=== PATIENT | female | born 1950 | race Caucasian/White ===

== ENCOUNTER 2017-02-04 14:21 | Emergency (ER) | payer MEDICARE ==
[2017-02-04] MEDS ORDERED: Narcan 0.4 MG/ML IV ONE (14:39)
[2017-02-04] MEDS ORDERED: Narcan 0.4 MG/ML ONE (14:44)
[2017-02-04 14:48] LABS: COMPLETE URINE MICROSCOPIC? YES; Collection Type CATH
[2017-02-04 14:58] LABS: Bacteria MANY /HPF (NEGATIVE); Epithelial Cells FEW /HPF (FEW)
--- NOTE | 2017-02-04 14:58 | XRAY ---
Indication: Hypoxia. Acute mental status change. Comparison: April 30, 2016. Portable chest again hyperinflated and clear. Heart is upper limits normal for AP portable technique. Bony thorax intact. Again noted left mastectomy. Impression: Nonacute hyperinflated chest.
--- NOTE | 2017-02-04 15:03 | ERPHSYRPT ---
- History of Present Illness Time Seen by Provider: 02/04/17 14:45 Source: patient, family Exam Limitations: clinical condition Physician History: Pt. with long H/O breast and lung CA who became confused today and sleeping more since last pm. She has no access to pain meds per her daughter here. Her has been hospitalized for pacemaker today. No recent meds changed. Pt. is DNR. Time of Onset/Last Time Seen Normal: last pm. last at her dementia baseline. Timing/Duration: today, hour(s) Severity: severe Character of Deficits: new weakness, impaired speech Deficits: bed-ridden, weak Baseline/Normal Cognition: alert oriented x 3 Current Cognition: poor alertness Baseline Gait: unable to walk Associated Symptoms: confusion, weakness, slurred speech Allergies/Adverse Reactions: Sulfa (Sulfonamide Antibiotics) [Sulfa(Sulfonamide Antibiotics)] Allergy (Mild, Verified 02/04/17 15:13) Rash steroids Adverse Reaction (Unknown, Uncoded 02/04/17 15:13) Home Medications: Acitretin 25 mg PO BID 02/04/17 [History] Albuterol Sulfate [Proair Hfa] 8.5 gm IH UD 02/04/17 [History] Alprazolam 1 mg [Xanax 1 mg] 1 mg PO TID 02/04/17 [History] Calcipotriene/Betamethasone [Calcipotriene-Betameth Dp Oint] 60 gm TP BID [History] Ergocalciferol (Vitamin D2) [Vitamin D] 50,000 unit PO UD 02/04/17 [History] Famotidine 40 mg PO BID 02/04/17 [History] Fenofibrate 160 mg PO DAILY 02/04/17 [History] Fluticasone/Salmeterol [Advair 100-50 Diskus] 1 each IH BID 02/04/17 [History] Folic Acid 1 mg PO DAILY 02/04/17 [History] Gabapentin 800 mg PO TID 02/04/17 [History] Metoprolol Succinate 25 mg PO BID 02/04/17 [History] Oxycodone HCl Cr 20 mg [Oxycontin 20 MG] 20 mg PO BID 02/04/17 [History] Oxycodone HCl/Acetaminophen [Oxycodon-Acetaminophen 7.5-325] 1 each PO BID 02/04 [History] Pramipexole Di-HCl 0.5 mg [Mirapex 0.5 MG Tablet] 0.25 mg PO DAILY [History] Simvastatin 40 mg [Zocor 40 mg] 40 mg PO DAILY 02/04/17 [History] Tamoxifen Citrate 20 mg PO DAILY 02/04/17 [History] Tiotropium [place] Inhaler [Spiriva 18 Mcg/Cap Inhaler] 1 ea IH DAILY [History] Tizanidine HCl 4 mg [Zanaflex 4 MG] 4 mg PO BID 02/04/17 [History] Hx Tetanus, Diphtheria Vaccination/Date Given: No Hx Influenza Vaccination/Date Given: Yes (fall 2012) Hx Pneumococcal Vaccination/Date Given: Yes (2011) - Review of Systems Constitutional: Weakness Respiratory: No Cough Cardiac: No Chest Pain Abdominal/Gastrointestinal: Diarrhea Skin: Other (mottling and cool) Psychological: Memory Loss All Other Systems: Unable due to condition, Unable due to dementia - Past Medical History Pertinent Past Medical History: Yes Neurological History: Peripheral Neuropathy ENT History: Cataracts Cardiac History: Arrhythmia, High Cholesterol Respiratory History: Emphysema, Lung Cancer Endocrine Medical History: No Pertinent History Musculoskeletal History: Arthritis, Fibromyalgia GI Medical History: GERD History: No Pertinent History Psycho-Social History: Anxiety Female Reproductive Disorders: Breast Cancer Other Medical History: psorisis, elevated triglycerides - Past Surgical History Past Surgical History: Yes Neuro Surgical History: No Pertinent History Cardiac: No Pertinent History Respiratory: Lobectomy Gastrointestinal: Appendectomy, Cholecystectomy Genitourinary: No Pertinent History Musculoskeletal: No Pertinent History Female Surgical History: Hysterectomy, Mastectomy Other Surgical History: CVL PORT placement et removal, bilateral cataract surgeries (Phaco w/ IOL bilateral) - Social History Smoking Status: Current every day smoker How long have you smoked: 48 yrs Exposure to second hand smoke: No Drug Use: none Patient Lives Alone: No - Female History Hx Now: No - Nursing Vital Signs Nursing Vital Signs: Initial Vital Signs Temperature 98.8 F Temperature Source Rectal Pulse Rate 84 Respiratory Rate 18 Blood Pressure [] 132/61 Pain Intensity 0 - [place] Coma Scale Best Eye Response (Phi): (2) open to pain Best Verbal Response ([place]): (4) confused conversation Best Motor Response ([place]): (5) localizes to pain Phi Total: 11 - Physical Exam General Appearance: moderate distress Eye Exam: bilateral eye: PERRL, EOMI Ears, Nose, Throat Exam: normal ENT inspection, dry mucous membranes Neck Exam: normal inspection, supple Respiratory: normal breath sounds, lungs clear Cardiovascular: regular rate/rhythm, normal heart sounds, normal peripheral pulses Gastrointestinal: soft, normal bowel sounds Back Exam: rash Extremity Exam: pelvis stable, other (psoriasis) Mental Status: depressed affect, disoriented to person, disoriented to place, 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 Not transported with O2 at her usual 3lpm. Now 96% on 3 lpm NC O2.) Oxygen Delivery: Nasal Cannula - Course Nursing assessment & vital signs reviewed: Yes EKG Interpreted by Me: RATE (83), Sinus Rhythm, Other (RVH. No acute ischemia.) - Radiology Exams Chest X-ray Interpretation: Teleradiologist Report, Other (Non-acute hyperinflated Chest.) - CT Exams Head CT Interpretation: Tele-radiologist Report, Other (No new/acute intracranial abn.) Ordered Tests: Active Orders 24 hr Category Date Time Status EKG-ER Only STAT Care 02/04/17 14:39 Active IV Insertion STAT Care 02/04/17 14:39 Active NPO (ED) STAT Care 02/04/17 14:39 Active Oxygen-ED Only NASAL CANNULA 3 lpm Care 02/04/17 15:12 Active Oxygen-ED Only NON-REBREATHER 100% Care 02/04/17 14:39 Inactive Pulse Oximetry (ED) STAT Care 02/04/17 14:39 Active CHEST 1 VIEW (PORTABLE) Stat Exams 02/04/17 14:40 Completed HEAD WITHOUT CONTRAST [CT] Stat Exams 02/04/17 14:49 Completed ACETAMINOPHEN Stat Lab 02/04/17 15:00 Completed ARTERIAL BLOOD GASES Urgent Lab 02/04/17 15:25 Completed CBC W DIFF Stat Lab 02/04/17 15:00 Completed CMP Stat Lab 02/04/17 15:00 Completed Ethyl Alcohol,Urine Stat Lab 02/04/17 14:40 Completed Lactic Acid Stat Lab 02/04/17 15:25 Completed Manual Differential NC Stat Lab 02/04/17 15:00 Completed PROTIME WITH INR Stat Lab 02/04/17 15:00 Completed SALICYLATE Stat Lab 02/04/17 15:00 Completed UA W/ MICROSCOPIC Stat Lab 02/04/17 14:40 Completed Urine Triage Profile Stat Lab 02/04/17 14:40 Completed Medication Summary Generic Name Dose Route Start Last Admin Trade Name Freq PRN Reason Stop Dose Admin Levofloxacin/Dextrose 150 mls @ 100 mls/hr 02/04/17 16:15 Levofloxacin 750mg/150ml D5w IV 02/04/17 17:44 STAT ONE Piperacillin Sod/Tazobactam 100 mls @ 100 mls/hr 02/04/17 16:15 Sod 4.5 gm/ Dextrose IV 02/04/17 17:14 STAT ONE Sodium Chloride 1,000 mls @ 999 mls/hr 02/04/17 16:15 Sodium Chloride 0.9% 1000 Ml IV 02/04/17 17:15 .Q1H1M STA Vancomycin HCl 250 mls @ 167 mls/hr 02/04/17 16:15 Vancomycin 1gm/ Ns 250ml IV 02/04/17 17:44 STAT ONE Discontinued Medications Generic Name Dose Route Start Last Admin Trade Name Freq PRN Reason Stop Dose Admin Naloxone HCl 0.4 mg 02/04/17 14:39 02/04/17 14:45 Narcan 0.4 Mg/Ml IV 02/04/17 14:40 0.4 mg STAT ONE Administration Naloxone HCl Confirm 02/04/17 14:44 Narcan 0.4 Mg/Ml Administered 02/04/17 14:45 Dose 0.4 mg .ROUTE .K-MED ONE Lab/Rad Data: Laboratory Result Diagrams 02/04/17 15:00 02/04/17 15:00 Laboratory Results 02/04/17 02/04/17 02/04/17 Range/Units 15:25 15:25 15:00 WBC (4.0-10.5) K/mm3 RBC (4.1-5.4) M/mm3 Hgb (12.0-16.0) gm/dl Hct (35-47) % MCV (78-100) fl MCH (26-32) pg MCHC (32-36) g/dl RDW (11.5-14.0) % Plt Count (150-450) K/mm3 MPV (6-9.5) fl INR 2.33 (0.8-3.0) Puncture Site LEFT RADIAL pCO2 39 (35-45) mmHg pO2 86 (75-100) mmHg Base Excess -3.2 L (-2.0-2.0) O2 Saturation 93.3 L (94-100) g/dF ABG pH 7.36 (7.35-7.45) ABG HCO3 22.0 (22-28) ABG O2 Sat (Measured) 96.6 (95-100) % Dada Test YES A-a Gradient 93 a/A Ratio 0.48 Hemoglobin 11.7 Carboxyhemoglobin 2.6 (0.0-6.9) % THgb Methemoglobin 0.7 L (1.4-1.5) % Temperature 37.0 C POC O2 Flow Rate 32 % Sodium (136-145) mEq/L Potassium 5.2 H (3.5-5.1) mEq/L Chloride (98-107) mEq/L Carbon Dioxide (21-32) mEq/L Anion Gap (5-15) MEQ/L BUN (9-20) mg/dL Creatinine (0.55-1.30) mg/dl Estimated GFR ML/MIN Glucose (70-110) MG/DL Lactic Acid 2.3 H (0.4-2.0) Calcium (8.5-10.1) mg/dL Total Bilirubin (0.2-1.0) mg/dL AST (15-37) U/L ALT (12-78) U/L Alkaline Phosphatase (46-116) U/L Serum Total Protein (6.4-8.2) gm/dL Albumin (3.4-5.0) g/dL Ur Collection Type Urine Color (YELLOW) Urine Appearance (CLEAR) Urine pH (5-6) Ur Specific [place] (1.005-1.025) Urine Protein (Negative) Urine Glucose (UA) (NEGATIVE) mg/dL Urine Ketones (NEGATIVE) Urine Nitrite (NEGATIVE) Urine Bilirubin (NEGATIVE) Urine Urobilinogen (0-1) mg/dL Urine WBC (Auto) (NEGATIVE) Urine RBC (Auto) (0-5) Jose/ul Urine Microscopic RBC (0-2) /HPF Urine Microscopic WBC (0-5) /HPF Ur Epithelial Cells (FEW) /HPF Urine Bacteria (NEGATIVE) /HPF Salicylates (2.8-20.0) mg/dl Urine Opiates Level (NEGATIVE) Ur Methadone (NEGATIVE) Acetaminophen (10-30) ug/ml Urine Barbiturates (NEGATIVE) Ur Phencyclidine (PCP) (NEGATIVE) Urine Amphetamine (NEGATIVE) U Benzodiazepine Level (NEGATIVE) Urine Cocaine (NEGATIVE) Urine Marijuana (THC) (NEGATIVE) Urine Ethyl Alcohol (0.00-20) mg/dl Specimen Received 02/04/17 02/04/17 02/04/17 Range/Units 15:00 15:00 14:40 WBC 23.8 H (4.0-10.5) K/mm3 RBC 3.66 L (4.1-5.4) M/mm3 Hgb 11.7 L (12.0-16.0) gm/dl Hct 39.1 (35-47) % MCV 106.8 H (78-100) fl MCH 31.9 (26-32) pg MCHC 29.9 L (32-36) g/dl RDW 16.8 H (11.5-14.0) % Plt Count 159 (150-450) K/mm3 MPV 11.5 H (6-9.5) fl INR (0.8-3.0) Puncture Site pCO2 (35-45) mmHg pO2 (75-100) mmHg Base Excess (-2.0-2.0) O2 Saturation (94-100) g/dF ABG pH (7.35-7.45) ABG HCO3 (22-28) ABG O2 Sat (Measured) (95-100) % Dada Test A-a Gradient a/A Ratio Hemoglobin Carboxyhemoglobin (0.0-6.9) % THgb Methemoglobin (1.4-1.5) % Temperature C POC O2 Flow Rate % Sodium 149 H (136-145) mEq/L Potassium 5.3 H (3.5-5.1) mEq/L Chloride 109 H (98-107) mEq/L Carbon Dioxide 26.1 (21-32) mEq/L Anion Gap 18.7 H (5-15) MEQ/L BUN 56 H (9-20) mg/dL Creatinine 3.80 H (0.55-1.30) mg/dl Estimated GFR 13 ML/MIN Glucose 101 (70-110) MG/DL Lactic Acid (0.4-2.0) Calcium 7.6 L (8.5-10.1) mg/dL Total Bilirubin 1.8 H (0.2-1.0) mg/dL AST 7722 H (15-37) U/L ALT 1973 H (12-78) U/L Alkaline Phosphatase 72 (46-116) U/L Serum Total Protein 6.6 (6.4-8.2) gm/dL Albumin 3.2 L (3.4-5.0) g/dL Ur Collection Type Urine Color (YELLOW) Urine Appearance (CLEAR) Urine pH (5-6) Ur Specific [place] (1.005-1.025) Urine Protein (Negative) Urine Glucose (UA) (NEGATIVE) mg/dL Urine Ketones (NEGATIVE) Urine Nitrite (NEGATIVE) Urine Bilirubin (NEGATIVE) Urine Urobilinogen (0-1) mg/dL Urine WBC (Auto) (NEGATIVE) Urine RBC (Auto) (0-5) Jose/ul Urine Microscopic RBC (0-2) /HPF Urine Microscopic WBC (0-5) /HPF Ur Epithelial Cells (FEW) /HPF Urine Bacteria (NEGATIVE) /HPF Salicylates 5.4 (2.8-20.0) mg/dl Urine Opiates Level NEG. (NEGATIVE) Ur Methadone NEG. (NEGATIVE) Acetaminophen < 2.0 L (10-30) ug/ml Urine Barbiturates NEG. (NEGATIVE) Ur Phencyclidine (PCP) NEG. (NEGATIVE) Urine Amphetamine NEG. (NEGATIVE) U Benzodiazepine Level POS. (NEGATIVE) Urine Cocaine NEG. (NEGATIVE) Urine Marijuana (THC) NEG. (NEGATIVE) Urine Ethyl Alcohol (0.00-20) mg/dl Specimen Received 02/04/17 02/04/17 Range/Units 14:40 14:40 WBC (4.0-10.5) K/mm3 RBC (4.1-5.4) M/mm3 Hgb (12.0-16.0) gm/dl Hct (35-47) % MCV (78-100) fl MCH (26-32) pg MCHC (32-36) g/dl RDW (11.5-14.0) % Plt Count (150-450) K/mm3 MPV (6-9.5) fl INR (0.8-3.0) Puncture Site pCO2 (35-45) mmHg pO2 (75-100) mmHg Base Excess (-2.0-2.0) O2 Saturation (94-100) g/dF ABG pH (7.35-7.45) ABG HCO3 (22-28) ABG O2 Sat (Measured) (95-100) % Dada Test A-a Gradient a/A Ratio Hemoglobin Carboxyhemoglobin (0.0-6.9) % THgb Methemoglobin (1.4-1.5) % Temperature C POC O2 Flow Rate % Sodium (136-145) mEq/L Potassium (3.5-5.1) mEq/L Chloride (98-107) mEq/L Carbon Dioxide (21-32) mEq/L Anion Gap (5-15) MEQ/L BUN (9-20) mg/dL Creatinine (0.55-1.30) mg/dl Estimated GFR ML/MIN Glucose (70-110) MG/DL Lactic Acid (0.4-2.0) Calcium (8.5-10.1) mg/dL Total Bilirubin (0.2-1.0) mg/dL AST (15-37) U/L ALT (12-78) U/L Alkaline Phosphatase (46-116) U/L Serum Total Protein (6.4-8.2) gm/dL Albumin (3.4-5.0) g/dL Ur Collection Type CATH Urine Color YELLOW (YELLOW) Urine Appearance CLOUDY (CLEAR) Urine pH 5.0 5.0 (5-6) Ur Specific [place] 1.025 (1.005-1.025) Urine Protein 100 (Negative) Urine Glucose (UA) NEGATIVE (NEGATIVE) mg/dL Urine Ketones NEGATIVE (NEGATIVE) Urine Nitrite NEGATIVE (NEGATIVE) Urine Bilirubin SMALL (NEGATIVE) Urine Urobilinogen 1 (0-1) mg/dL Urine WBC (Auto) SMALL (NEGATIVE) Urine RBC (Auto) MODERATE (0-5) Jose/ul Urine Microscopic RBC 0-2 (0-2) /HPF Urine Microscopic WBC 10-15 (0-5) /HPF Ur Epithelial Cells FEW (FEW) /HPF Urine Bacteria MANY (NEGATIVE) /HPF Salicylates (2.8-20.0) mg/dl Urine Opiates Level (NEGATIVE) Ur Methadone (NEGATIVE) Acetaminophen (10-30) ug/ml Urine Barbiturates (NEGATIVE) Ur Phencyclidine (PCP) (NEGATIVE) Urine Amphetamine (NEGATIVE) U Benzodiazepine Level (NEGATIVE) Urine Cocaine (NEGATIVE) Urine Marijuana (THC) (NEGATIVE) Urine Ethyl Alcohol 3 (0.00-20) mg/dl Specimen Received 02/04/17 1440 - Progress Progress Note: 02/04/17 16:06 Suspected poor outcome in this Cancer Pt. with sepsis. Counseled pt/family regarding: lab results, diagnosis, need for follow-up (They wish transfer to [facility]), rad results - Departure Time of Disposition: 16:00 Departure Disposition: [facility] Nader Troy[facility] Clinical Impression: Sepsis Qualifiers: Sepsis type: sepsis due to unspecified organism Qualified Code(s): A41.9 - Sepsis, unspecified organism Breast cancer Qualifiers: Breast location: unspecified site of breast Patient sex: female Laterality: left Qualified Code(s): C50.912 - Malignant neoplasm of unspecified site of left female breast Lung cancer Qualifiers: Laterality: unspecified laterality Lung location: unspecified part of lung Qualified Code(s): C34.90 - Malignant neoplasm of unspecified part of unspecified bronchus or lung Condition: Critical Critical Care Time: Yes Critical Care Time(excluding separately billable procedures): 75-104 minutes Referrals: LUIS ENRIQUE MAC [Primary Care Provider] -
--- NOTE | 2017-02-04 15:23 | XRAY ---
Indication: Acute mental status change. History of breast and lung carcinoma. Multiple contiguous axial images obtained through the head without contrast. Comparison: May 26, 2013. Again age-appropriate global atrophy and minimal degenerative micro-ischemia bilaterally. No acute intracranial hemorrhage, abnormal extra-axial fluid collection, or mass effect. Fourth ventricle is midline without hydrocephalus. Shaikh-white matter differentiation maintained. Bony calvarium intact. Visualized paranasal sinuses and mastoid air cells are pneumatized and clear. Impression: Again normal aging brain including atrophy and degenerative micro-ischemia. No new/acute intracranial abnormalities. CTDI 60.93
[2017-02-04 15:25] LABS: INR 2.33 (0.8-3.0); PROTIME 25.5 SECONDS (9.95-12.35)
[2017-02-04 15:28] LABS: A-aADO2 93; ALLEN TEST OK? YES; ARTERIAL BLD GAS O2 SATURATION 96.6 % (95-100); ARTERIAL BLOOD GAS BASE EXCESS -3.2 (-2.0-2.0); ARTERIAL BLOOD GAS FIO2 32 %; ARTERIAL BLOOD GAS PO2 86 mmHg (75-100); ARTERIAL BLOOD GAS pH 7.36 (7.35-7.45)
[2017-02-04 15:35] VITALS: O2SAT 96
[2017-02-04 15:40] LABS: Mean Cell Volume 106.8 fl (78-100); Mean Platelet Volume 11.5 fl (6-9.5); Platelet Count 159 K/mm3 (150-450); Red Blood Count 3.66 M/mm3 (4.1-5.4); Red Cell Distribution Width 16.8 % (11.5-14.0); White Blood Count 23.8 K/mm3 (4.0-10.5)
[2017-02-04 15:47] LABS: ALBUMIN 3.2 g/dL (3.4-5.0); ALKALINE PHOSPHATASE 72 U/L (46-116); ANION GAP 18.7 MEQ/L (5-15); BILIRUBIN,TOTAL 1.8 mg/dL (0.2-1.0); BLOOD UREA NITROGEN 56 mg/dL (9-20); CHLORIDE 109 mEq/L (98-107); Carbon Dioxide 26.1 mEq/L (21-32); Glucose 101 MG/DL (70-110); Mean Corpuscular Hemoglobin 31.9 pg (26-32); Potassium 5.3 mEq/L (3.5-5.1); SODIUM 149 mEq/L (136-145); Total Protein 6.6 gm/dL (6.4-8.2)
[2017-02-04 16:14] LABS: ACETAMINOPHEN < 2.0 ug/ml (10-30); SGOT/AST 7722 U/L (15-37); SGPT/ALT 1973 U/L (12-78)
[2017-02-04] MEDS ORDERED: LEVOFLOXACIN 750MG/150ML D5W 150 ML IV ONE ×2 (16:15→17:26)
[2017-02-04] MEDS ORDERED: Vancomycin 1GM/ Ns 250ML*** 250 ML IV ONE (16:15)
[2017-02-04] MEDS ORDERED: Sodium Chloride 0.9% 1000 ML 1,000 ML IV STA (16:15)
[2017-02-04] MEDS ORDERED: Zosyn INJ 4.5 GM in D5w 100ML Mini Bag 100 ML 100 ML IV ONE (16:15)
[2017-02-04] MEDS ORDERED: Zosyn INJ IV ONE (16:17)
[2017-02-04] MEDS ORDERED: Sodium Chloride 0.9% 1000 ML 1,000 ML ONE (16:17)
[2017-02-04] MEDS ORDERED: D5w 100ML Mini Bag 100 ML 100 ML IV ONE (16:18)
[2017-02-04 16:36] LABS: BAND 6 % (0.0-2.0); Nucleated Red Blood Cell 1 %; Total Cells Counted 100
[2017-02-04 16:37] LABS: Platelet Estimate NORMAL (NORMAL)
[2017-02-04 16:39] LABS: ANISOCYTOSIS 1+; Polychromasia 2+
[2017-02-04 16:40] LABS: Hypochromia 1+
[2017-02-04 16:41] LABS: Macrocytosis 1+
[2017-02-04] MEDS ORDERED: Levofloxacin 500MG/100ML D5W 100 ML IV ONE (17:23)
[2017-02-04 17:40] VITALS: BP 130/78; PULSE 80
== END 2017-02-04 17:40 | disposition short-term general hospital (02) ==
LOC: ED 14:21
DX: A41.9 Sepsis, unspecified organism (principal); C50.912 Malignant neoplasm of unspecified site of left female breast; C34.90 Malignant neoplasm of unspecified part of unspecified bronchus or lung; E78.00 Pure hypercholesterolemia, unspecified; Z79.899 Other long term (current) drug therapy; R41.0 Disorientation, unspecified
CPT/HCPCS: 96374; 96365; 96366; 99285; 36000; 96360; 93005; 81000; 85610; 36415; 80307 ×2; 80320; 83986; 85025; 80053; 71010; 70450; 82803; 82375; 36600; 83605; G0481; J1956; J2310; J2543

== ENCOUNTER 2017-06-19 06:33 | Day surgery (SDC) | payer MEDICARE ==
--- NOTE | 2017-05-12 11:25 | HP ---
DATE OF SURGERY: 05/15/2017 ADMISSION DIAGNOSIS: Esophagitis. The patient had a manometry scheduled but did not have this done. She was referred by Dr. Martinez with a narrowing requiring evaluation. ANTICIPATED PROCEDURE: EGD possible dilatation. HISTORY OF PRESENT ILLNESS: The patient had previous EGD. She now has what seems to be progressive disease. She presents for re-evaluation. EGD and possible dilatation. PAST MEDICAL HISTORY: ALLERGIES: SULFA, STEROIDS. MEDICATIONS: Multiple. PAST SURGICAL HISTORY: None recent. SOCIAL HISTORY: Half pack per day. ETOH negative. FAMILY HISTORY: Negative. REVIEW OF SYSTEMS: Emphysema. PHYSICAL EXAMINATION: VITAL SIGNS: Normal. CHEST: Clear. COR: Regular. NECK: No adenopathy. IMPRESSION: Esophagitis, difficulty swallowing, weight loss. PLAN: EGD, possible dilatation.
--- NOTE | 2017-06-14 16:41 | HP ---
ADMISSION DIAGNOSIS: Epigastric pain, weight loss, difficulty swallowing. PLAN: Esophagogastroduodenoscopy, possible dilatation. PAST MEDICAL HISTORY: ALLERGIES: Sulfa. MEDICATIONS: Multiple. SURGERIES: Multiple. REVIEW OF SYSTEMS: Emphysema. SOCIAL HISTORY: Negative. FAMILY HISTORY: Negative. PHYSICAL EXAMINATION: VITAL SIGNS: Normal. CHEST: Clear. COR: Regular. ABDOMEN: No palpate organomegaly or mass. Esophageal symptoms. PLAN: EGD.
[2017-06-19] MEDS ORDERED: DEMEROL 50 MG IJ ONE ×2 (06:34)
[2017-06-19] MEDS ORDERED: Zofran 4 MG/2 ML VIAL IV ONE (06:34)
[2017-06-19] MEDS ORDERED: VERSED 5 MG/5 ML IV ONE (06:34)
[2017-06-19] MEDS: Sodium Chloride 0.9% 1000 ML 1,000 ML IV SCH ×2 (06:51→07:16)
[2017-06-19 07:07] VITALS: O2SAT 97
[2017-06-19 09:59] VITALS: BP 133/78; PULSE 78
--- NOTE | 2017-06-20 07:54 | OP ---
SURGERY DATE/TIME: 06/19/2017 0850 PREOPERATIVE DIAGNOSIS: Epigastric pain, nausea, dysphagia. POSTOPERATIVE DIAGNOSIS: Esophageal stricture. PROCEDURE: EGD with balloon dilatation. SURGEON: Pablo Kerr M.D. ANESTHESIA: IVS. COMPLICATIONS: None. CONDITION: Stable. INDICATION: The patient has epigastric pain, nausea and dysphagia. DESCRIPTION OF PROCEDURE: Taken to the endoscopy suite. Left lateral decubitus position. IV sedation titrated. Scope introduced. There was a stricture size 24. It was insufflated to size 40. The scope was reintroduced. There was some usual abrasion and slight oozing. No suggestion of any major issue. Fundus, body, antrum, pylorus, duodenal bulb satisfactory. Scope withdrawn. The patient tolerated the procedure satisfactorily.
== END 2017-06-19 10:25 | disposition home or self-care (01) ==
LOC: SDC 06:33
PROVIDERS: ATTEND Surgery
PROC: 0D758ZZ Dilation of Esophagus, Via Natural or Artificial Opening Endoscopic (ICD-10-PCS; principal; 2017-06-19)
DX: K22.2 Esophageal obstruction (principal); R13.10 Dysphagia, unspecified; Z79.899 Other long term (current) drug therapy
CPT/HCPCS: 43249; C1726; J2175; J2250; J2405